=== PATIENT | female | born 1980 | race Hispanic/Latino ===

== ENCOUNTER 2019-05-09 17:59 | Emergency (ER) | payer SELFPAY ==
[2019-05-09] MEDS ORDERED: SODIUM CHLORIDE 0.9% 500 ML 500 ML IV ONE ×2 (18:07→21:12)
--- NOTE | 2019-05-09 18:10 | Event Note ---
ED Screening Note Date of service: 05/09/19 Time: 18:10 ED Screening Note: 38 y/o female comes in for high fever. This initial assessment/diagnostic orders/clinical plan/treatment(s) is/are subject to change based on patients health status, clinical progression and re- assessment by fellow clinical providers in the ED. Further treatment and workup at subsequent clinical providers discretion. Patient/guardian urged not to elope from the ED as their condition may be serious if not clinically assessed and managed. Initial orders include: Code sepsis called
[2019-05-09] MEDS ORDERED: ACETAMINOPHEN 325 MG TAB ONE (18:18)
[2019-05-09] MEDS ORDERED: SODIUM CHLORIDE 0.9% 1000 ML 1,000 ML ONE (18:18)
[2019-05-09] MEDS ORDERED: AZITHROMYCIN 500 MG in SODIUM CHLORIDE 0.9% 250ML 250 ML IV SCH (18:22)
[2019-05-09] MEDS ORDERED: cefTRIAXone/NS 2 GM/100 ML 2 GM/100 ML BAG IV SCH (18:22)
[2019-05-09] MEDS ORDERED: SODIUM CHLORIDE 0.9% 1000 ML IV SOLN IV ONE (18:22)
[2019-05-09] MEDS ORDERED: KETOROLAC 30 MG/1 ML INJ IV ONE (18:23)
[2019-05-09 18:28] LABS: Basophils % (Auto) 0.3 % (0.0-1.8); Eosinophils % (Auto) 0.2 % (0.0-4.3); Hematocrit 39.9 % (30.3-42.9); Hemoglobin 13.4 gm/dl (10.1-14.3); Lymphocytes # (Auto) 0.4 K/mm3 (1.2-5.4); Mean Corpuscular HGB Conc 34 % (30-34); Mean Corpuscular Volume 88 fl (79-97); Monocytes # (Auto) 0.5 K/mm3 (0.0-0.8); Monocytes % (Auto) 6.6 % (0.0-7.3); Platelet Count 198 K/mm3 (140-440); Red Blood Count 4.54 M/mm3 (3.65-5.03); Red Cell Distribution Width 14.1 % (13.2-15.2)
[2019-05-09] MEDS ORDERED: ACETAMINOPHEN 325 MG TAB PO ONE (18:29)
--- NOTE | 2019-05-09 18:36 | XRay Report ---
CHEST 1 VIEW INDICATION: possible Sepsis. COMPARISON: None FINDINGS: Support devices: None. Heart: Within normal limits. Lungs/Pleura: Minimal scarring versus atelectasis in the right midlung. Otherwise clear lungs. Additional findings: None. IMPRESSION: 1. No acute findings. Signer Name: Yohannes Gilmore MD Signed: 05/09/2019 6:31 PM Workstation Name: [id number]
[2019-05-09 18:39] LABS: INR 1.02 (0.87-1.13)
[2019-05-09 18:45] LABS: Alanine Aminotransferase 73 units/L (7-56); BUN/Creatinine Ratio 10; Blood Urea Nitrogen 8 mg/dL (7-17); Calcium 9.1 mg/dL (8.4-10.2); Hemolysis Index 6
[2019-05-09 20:00] LABS: Bacteria,Urine 1+ /HPF (Negative); Bilirubin,Urine NEG (Negative); Blood,Urine NEG (Negative); Color,Urine Yellow (Yellow); Mucus,Urine FEW /HPF; Protein,Urine <15 mg/dL mg/dL (Negative)
[2019-05-09] MEDS ORDERED: ONDANSETRON 4 MG/2 ML INJ ONE (20:08)
--- NOTE | 2019-05-09 22:20 | Cat Scan Report ---
CT chest w con INDICATION: high fever, respiratory distress. TECHNIQUE: All CT scans at this location are performed using the following dose modulation technique: Automated exposure control. CONTRAST: None. COMPARISON: None available. FINDINGS: The lungs contain no suspicious mass, infiltrate or pleural fluid. Mild as a continuation i s present. No mediastinal mass or adenopathy. Imaging of the upper abdomen is unremarkable. IMPRESSION: 1. Mild mosaic attenuation is most commonly seen in the setting of air trapping. 2. Negative for pneumonia or pleural fluid. Signer Name: Arben Gallegos MD Signed: 05/09/2019 10:16 PM Workstation Name: [id number]
[2019-05-09 22:30] VITALS: BP 99/59
--- NOTE | 2019-05-09 22:35 | Emergency Department Report ---
ED General Adult HPI - General Chief complaint: Upper Respiratory Infection Stated complaint: FEVER TEMP 104 CHILLS Time Seen by Provider: 05/09/19 18:06 Source: patient Mode of arrival: Wheelchair Limitations: No Limitations - History of Present Illness Initial comments: Patient is a 38-year-old female with a past medical history of anxiety as well as tobacco use is presenting with 3 days of cough cold congestion with some poor responsiveness this evening. Patient was found today by family lying in bed and seem to be in and out of consciousness. Patient was noted to be very hot to touch and diaphoretic at the time. Patient was transported by private vehicle to the emergency department. On arrival patient is tachycardic and was alert and oriented x3 but was ill-appearing. Patient is unable to give any additional history. Family states that she has had a mild cough for the past 2 days but seems to have worsened over the last several hours. Patient did shake her head yes to having body aches Severity scale (0 -10): 2 - Related Data Previous Rx's Medication Instructions Recorded Last Taken Type EPINEPHrine [Epipen 2-Brandon] 0.3 mg IM PRN PRN #1 ml 05/03/14 Unknown Rx Prednisone [Prednisone 10 mg 10 mg PO .TAPER #1 tab.ds.pk 05/03/14 Unknown Rx (6-Day Pack, 21 Tabs)] Albuterol INH(or & Nicu Only) 2 puff IH QID PRN #1 inhalation 05/09/19 Unknown Rx [ProAir HFA Inhaler] Amoxicillin/Potassium Clav 1 each PO BID #14 tablet 05/09/19 Unknown Rx [Augmentin 875-125 Tablet] guaiFENesin/CODEINE [Robitussin AC] 5 ml PO Q6HR PRN #100 oral.liqd 05/09/19 Unknown Rx predniSONE [Deltasone] 20 mg PO QDAY #5 tab 05/09/19 Unknown Rx Allergies Allergy/AdvReac Type Severity Reaction Status Date / Time cobalt Allergy Hives Verified 05/03/14 13:38 ED Review of Systems ROS: Stated complaint: FEVER TEMP 104 CHILLS Other details as noted in HPI Comment: All other systems reviewed and negative ED Past Medical Hx - Past Medical History Hx Diabetes: Yes (GESTATIONAL) Additional medical history: TACHYCARDIA - Surgical History Hx Cholecystectomy: Yes Additional Surgical History: X 4 - Social History Smoking Status: Never Smoker Substance Use Type: None - Medications Home Medications: Home Medications Medication Instructions Recorded Confirmed Last Taken Type EPINEPHrine [Epipen 2-Brandon] 0.3 mg IM PRN PRN #1 ml 05/03/14 Unknown Rx Prednisone [Prednisone 10 mg 10 mg PO .TAPER #1 tab.ds.pk 05/03/14 Unknown Rx (6-Day Pack, 21 Tabs)] Albuterol INH(or & Nicu Only) 2 puff IH QID PRN #1 inhalation 05/09/19 Unknown Rx [ProAir HFA Inhaler] Amoxicillin/Potassium Clav 1 each PO BID #14 tablet 05/09/19 Unknown Rx [Augmentin 875-125 Tablet] guaiFENesin/CODEINE [Robitussin AC] 5 ml PO Q6HR PRN #100 oral.liqd 05/09/19 Unknown Rx predniSONE [Deltasone] 20 mg PO QDAY #5 tab 05/09/19 Unknown Rx ED Physical Exam - General Limitations: No Limitations General appearance: alert, lethargic - Head Head exam: Present: atraumatic, normocephalic - Eye Eye exam: Present: normal appearance - ENT ENT exam: Present: normal orophraynx, mucous membranes moist. Absent: normal exam - Neck Neck exam: Present: normal inspection - Respiratory Respiratory exam: Present: normal lung sounds bilaterally. Absent: respiratory distress, wheezes, rales, rhonchi - Cardiovascular Cardiovascular Exam: Present: normal rhythm, tachycardia. Absent: systolic murmur, diastolic murmur, rubs, gallop - GI/Abdominal GI/Abdominal exam: Present: soft, normal bowel sounds. Absent: distended, tenderness, guarding, rebound - Extremities Exam Extremities exam: Present: normal inspection - Back Exam Back exam: Present: normal inspection - Neurological Exam Neurological exam: Present: alert, oriented X3 - Psychiatric Psychiatric exam: Present: normal affect, normal mood - Skin Skin exam: Present: warm, dry, intact, normal color. Absent: rash ED Course Vital Signs 05/09/19 05/09/19 05/09/19 18:05 18:57 19:00 Temperature 103.0 F H Pulse Rate 128 H 117 H Respiratory 18 22 27 H Rate Blood Pressure 92/45 92/49 Blood Pressure [Left] O2 Sat by Pulse 98 95 Oximetry 05/09/19 05/09/1905/09/20 19:15 19:30 20:15 Temperature Pulse Rate 116 H 109 H 114 H Respiratory 15 18 25 H Rate Blood Pressure 98/54 93/46 98/47 Blood Pressure [Left] O2 Sat by Pulse 94 95 Oximetry 05/09/19 05/09/19 05/09/19 20:16 20:30 21:00 Temperature Pulse Rate 114 H 115 H 114 H Respiratory 15 16 17 Rate Blood Pressure 98/55 93/46 Blood Pressure 98/47 [Left] O2 Sat by Pulse 97 96 94 Oximetry 05/09/19 05/09/19 21:45 22:00 Temperature Pulse Rate 106 H 106 H Respiratory 14 16 Rate Blood Pressure 90/49 94/56 Blood Pressure 93/52 [Left] O2 Sat by Pulse 96 97 Oximetry ED Medical Decision Making - Lab Data Result diagrams: 05/09/19 18:13 05/09/19 18:13 Lab Results 05/09/19 05/09/19 05/09/19 Range/Units 18:13 18:13 18:13 WBC 7.3 (4.5-11.0) K/mm3 RBC 4.54 (3.65-5.03) M/mm3 Hgb 13.4 (10.1-14.3) gm/dl Hct 39.9 (30.3-42.9) % MCV 88 (79-97) fl MCH 30 (28-32) pg MCHC 34 (30-34) % RDW 14.1 (13.2-15.2) % Plt Count 198 (140-440) K/mm3 Lymph % (Auto) 6.0 L (13.4-35.0) % [place] % (Auto) 6.6 (0.0-7.3) % Eos % (Auto) 0.2 (0.0-4.3) % Baso % (Auto) 0.3 (0.0-1.8) % Lymph # 0.4 L (1.2-5.4) K/mm3 [place] # 0.5 (0.0-0.8) K/mm3 Eos # 0.0 (0.0-0.4) K/mm3 Baso # 0.0 (0.0-0.1) K/mm3 Seg Neutrophils % 86.9 H (40.0-70.0) % Seg Neutrophils # 6.3 (1.8-7.7) K/mm3 PT 13.5 (12.2-14.9) Sec. INR 1.02 (0.87-1.13) VBG pH (7.320-7.420) Sodium 133 L (137-145) mmol/L Potassium 4.2 (3.6-5.0) mmol/L Chloride 99.1 (98-107) mmol/L Carbon Dioxide 18 L (22-30) mmol/L Anion Gap 20 mmol/L BUN 8 (7-17) mg/dL Creatinine 0.8 (0.7-1.2) mg/dL Estimated GFR > 60 ml/min BUN/Creatinine Ratio 10 % Glucose 132 H (65-100) mg/dL Lactic Acid (0.7-2.0) mmol/L Calcium 9.1 (8.4-10.2) mg/dL Total Bilirubin 0.30 (0.1-1.2) mg/dL AST 54 H (5-40) units/L ALT 73 H (7-56) units/L Alkaline Phosphatase 79 (35-129) units/L Total Protein 7.7 (6.3-8.2) g/dL Albumin 4.0 (3.9-5) g/dL Albumin/Globulin Ratio 1.1 % Urine Color (Yellow) Urine Turbidity (Clear) Urine pH (5.0-7.0) Ur Specific [place] (1.003-1.030) Urine Protein (Negative) mg/dL Urine Glucose (UA) (Negative) mg/dL Urine Ketones (Negative) mg/dL Urine Blood (Negative) Urine Nitrite (Negative) Urine Bilirubin (Negative) Urine Urobilinogen (<2.0) mg/dL Ur Leukocyte Esterase (Negative) Urine WBC (Auto) (0.0-6.0) /HPF Urine RBC (Auto) (0.0-6.0) /HPF U Epithel Cells (Auto) (0-13.0) /HPF Urine Bacteria (Auto) (Negative) /HPF Urine Mucus /HPF Influenza A (Rapid) (Negative) Influenza B (Rapid) (Negative) 05/09/19 05/09/19 05/09/19 Range/Units 18:13 18:13 18:58 WBC (4.5-11.0) K/mm3 RBC (3.65-5.03) M/mm3 Hgb (10.1-14.3) gm/dl Hct (30.3-42.9) % MCV (79-97) fl MCH (28-32) pg MCHC (30-34) % RDW (13.2-15.2) % Plt Count (140-440) K/mm3 Lymph % (Auto) (13.4-35.0) % [place] % (Auto) (0.0-7.3) % Eos % (Auto) (0.0-4.3) % Baso % (Auto) (0.0-1.8) % Lymph # (1.2-5.4) K/mm3 [place] # (0.0-0.8) K/mm3 Eos # (0.0-0.4) K/mm3 Baso # (0.0-0.1) K/mm3 Seg Neutrophils % (40.0-70.0) % Seg Neutrophils # (1.8-7.7) K/mm3 PT (12.2-14.9) Sec. INR (0.87-1.13) VBG pH 7.485 H (7.320-7.420) Sodium (137-145) mmol/L Potassium (3.6-5.0) mmol/L Chloride (98-107) mmol/L Carbon Dioxide (22-30) mmol/L Anion Gap mmol/L BUN (7-17) mg/dL Creatinine (0.7-1.2) mg/dL Estimated GFR ml/min BUN/Creatinine Ratio % Glucose (65-100) mg/dL Lactic Acid 3.10 H* (0.7-2.0) mmol/L Calcium (8.4-10.2) mg/dL Total Bilirubin (0.1-1.2) mg/dL AST (5-40) units/L ALT (7-56) units/L Alkaline Phosphatase (35-129) units/L Total Protein (6.3-8.2) g/dL Albumin (3.9-5) g/dL Albumin/Globulin Ratio % Urine Color (Yellow) Urine Turbidity (Clear) Urine pH (5.0-7.0) Ur Specific [place] (1.003-1.030) Urine Protein (Negative) mg/dL Urine Glucose (UA) (Negative) mg/dL Urine Ketones (Negative) mg/dL Urine Blood (Negative) Urine Nitrite (Negative) Urine Bilirubin (Negative) Urine Urobilinogen (<2.0) mg/dL Ur Leukocyte Esterase (Negative) Urine WBC (Auto) (0.0-6.0) /HPF Urine RBC (Auto) (0.0-6.0) /HPF U Epithel Cells (Auto) (0-13.0) /HPF Urine Bacteria (Auto) (Negative) /HPF Urine Mucus /HPF Influenza A (Rapid) Negative (Negative) Influenza B (Rapid) Negative (Negative) 05/09/19 05/09/19 05/09/19 Range/Units 18:59 19:46 20:04 WBC (4.5-11.0) K/mm3 RBC (3.65-5.03) M/mm3 Hgb (10.1-14.3) gm/dl Hct (30.3-42.9) % MCV (79-97) fl MCH (28-32) pg MCHC (30-34) % RDW (13.2-15.2) % Plt Count (140-440) K/mm3 Lymph % (Auto) (13.4-35.0) % [place] % (Auto) (0.0-7.3) % Eos % (Auto) (0.0-4.3) % Baso % (Auto) (0.0-1.8) % Lymph # (1.2-5.4) K/mm3 [place] # (0.0-0.8) K/mm3 Eos # (0.0-0.4) K/mm3 Baso # (0.0-0.1) K/mm3 Seg Neutrophils % (40.0-70.0) % Seg Neutrophils # (1.8-7.7) K/mm3 PT (12.2-14.9) Sec. INR (0.87-1.13) VBG pH (7.320-7.420) Sodium (137-145) mmol/L Potassium (3.6-5.0) mmol/L Chloride (98-107) mmol/L Carbon Dioxide (22-30) mmol/L Anion Gap mmol/L BUN (7-17) mg/dL Creatinine (0.7-1.2) mg/dL Estimated GFR ml/min BUN/Creatinine Ratio % Glucose (65-100) mg/dL Lactic Acid 2.30 H* 2.00 (0.7-2.0) mmol/L Calcium (8.4-10.2) mg/dL Total Bilirubin (0.1-1.2) mg/dL AST (5-40) units/L ALT (7-56) units/L Alkaline Phosphatase (35-129) units/L Total Protein (6.3-8.2) g/dL Albumin (3.9-5) g/dL Albumin/Globulin Ratio % Urine Color Yellow (Yellow) Urine Turbidity Slightly-cloudy (Clear) Urine pH 6.0 (5.0-7.0) Ur Specific [place] 1.021 (1.003-1.030) Urine Protein <15 mg/dl (Negative) mg/dL Urine Glucose (UA) Neg (Negative) mg/dL Urine Ketones Neg (Negative) mg/dL Urine Blood Neg (Negative) Urine Nitrite Neg (Negative) Urine Bilirubin Neg (Negative) Urine Urobilinogen 4.0 (<2.0) mg/dL Ur Leukocyte Esterase Neg (Negative) Urine WBC (Auto) 1.0 (0.0-6.0) /HPF Urine RBC (Auto) 4.0 (0.0-6.0) /HPF U Epithel Cells (Auto) 5.0 (0-13.0) /HPF Urine Bacteria (Auto) 1+ (Negative) /HPF Urine Mucus Few /HPF Influenza A (Rapid) (Negative) Influenza B (Rapid) (Negative) 05/09/19 Range/Units 21:01 WBC (4.5-11.0) K/mm3 RBC (3.65-5.03) M/mm3 Hgb (10.1-14.3) gm/dl Hct (30.3-42.9) % MCV (79-97) fl MCH (28-32) pg MCHC (30-34) % RDW (13.2-15.2) % Plt Count (140-440) K/mm3 Lymph % (Auto) (13.4-35.0) % [place] % (Auto) (0.0-7.3) % Eos % (Auto) (0.0-4.3) % Baso % (Auto) (0.0-1.8) % Lymph # (1.2-5.4) K/mm3 [place] # (0.0-0.8) K/mm3 Eos # (0.0-0.4) K/mm3 Baso # (0.0-0.1) K/mm3 Seg Neutrophils % (40.0-70.0) % Seg Neutrophils # (1.8-7.7) K/mm3 PT (12.2-14.9) Sec. INR (0.87-1.13) VBG pH (7.320-7.420) Sodium (137-145) mmol/L Potassium (3.6-5.0) mmol/L Chloride (98-107) mmol/L Carbon Dioxide (22-30) mmol/L Anion Gap mmol/L BUN (7-17) mg/dL Creatinine (0.7-1.2) mg/dL Estimated GFR ml/min BUN/Creatinine Ratio % Glucose (65-100) mg/dL Lactic Acid 2.00 (0.7-2.0) mmol/L Calcium (8.4-10.2) mg/dL Total Bilirubin (0.1-1.2) mg/dL AST (5-40) units/L ALT (7-56) units/L Alkaline Phosphatase (35-129) units/L Total Protein (6.3-8.2) g/dL Albumin (3.9-5) g/dL Albumin/Globulin Ratio % Urine Color (Yellow) Urine Turbidity (Clear) Urine pH (5.0-7.0) Ur Specific [place] (1.003-1.030) Urine Protein (Negative) mg/dL Urine Glucose (UA) (Negative) mg/dL Urine Ketones (Negative) mg/dL Urine Blood (Negative) Urine Nitrite (Negative) Urine Bilirubin (Negative) Urine Urobilinogen (<2.0) mg/dL Ur Leukocyte Esterase (Negative) Urine WBC (Auto) (0.0-6.0) /HPF Urine RBC (Auto) (0.0-6.0) /HPF U Epithel Cells (Auto) (0-13.0) /HPF Urine Bacteria (Auto) (Negative) /HPF Urine Mucus /HPF Influenza A (Rapid) (Negative) Influenza B (Rapid) (Negative) - Radiology Data CT chest w con INDICATION: high fever, respiratory distress. TECHNIQUE: All CT scans at this location are performed using the following dose modulation technique: Automated exposure control. CONTRAST: None. COMPARISON: None available. FINDINGS: The lungs contain no suspicious mass, infiltrate or pleural fluid. Mild as a continuation is present. No mediastinal mass or adenopathy. Imaging of the upper abdomen is unremarkable. IMPRESSION: 1. Mild mosaic attenuation is most commonly seen in the setting of air trapping. 2. Negative for pneumonia or pleural fluid. Signer Name: Arben Gallegos MD Signed: 05/09/2019 10:16 PM Workstation Name: [email or web address] - Medical Decision Making Patient had a high fever with tachycardia and meet sepsis criteria. Patient was started on IV fluids. Patient's map did improve significantly with the IV fl uids given. Patient is also had improvement of her mental status. After fever improved the patient was alert and oriented x3 and talking normally with family. Patient likely has some mild delirium secondary to the high fever. Chest x- ray was negative for acute pneumonia. CT of the chest was done as well to ensure that there was not a retrocardiac pneumonia that was not seen. Patient was covered with Rocephin and azithromycin initially on arrival. Patient likely has a acute bronchitis causing her symptoms. Patient's lactic acid level has decreased with IV fluids given here in the emergency department. Patient is oxygenating well and again is alert and oriented x3 and appears to have improved dramatically from her arrival. Patient will be given medication for symptomatic relief will be discharged home. Critical care attestation.: If time is entered above; I have spent that time in minutes in the direct care of this critically ill patient, excluding procedure time. ED Disposition Clinical Impression: Acute bronchitis Qualifiers: Bronchitis organism: unspecified organism Qualified Code(s): J20.9 - Acute bronchitis, unspecified Disposition: DC-01 TO HOME OR SELFCARE Is pt being admited?: No Does the pt Need Aspirin: No Condition: Stable Instructions: Acute Bronchitis (ED), Fever in Adults (ED) Referrals: PRIMARY CARE, [Primary Care Provider] - 3-5 Days Time of Disposition: 22:41
== END 2019-05-09 23:05 | disposition home or self-care (01) ==
LOC: ED 17:59
DX: J20.9 Acute bronchitis, unspecified (principal); Z90.49 Acquired absence of other specified parts of digestive tract; Z79.899 Other long term (current) drug therapy; Z88.8 Allergy status to other drugs, medicaments and biological substances
CPT/HCPCS: 36415; 71045; 71260; 80053; 81001; 82140; 82805; 85025; 85610; 87040; 87086; 87400; 93005; 93010; 96365; 96368; 96375; 99285; J0456; J0696; J1885; J2405; J7030; J7040; J7050; Q9967